=== PATIENT | female | born 1935 | race Two or more races ===

== ENCOUNTER 2018-06-07 08:20 | Emergency (ER) | payer MEDICARE, OTHER ==
[~2018-06-07] VITALS: Ht 162.6 cm; Wt 61.7 kg
[2018-06-07 09:05] VITALS: BP 132/85
[2018-06-07] MEDS ORDERED: methylPREDNISolone SOD SUCC 125 MG/2 ML VL IM ONE (09:15)
[2018-06-07] MEDS ORDERED: KETOROLAC TROMETH 60MG/2ML VIAL IM ONE (09:15)
== END 2018-06-07 10:01 | disposition home or self-care (01) ==
LOC: ER 08:20
DX: M11.242 Other chondrocalcinosis, left hand (principal); M10.9 Gout, unspecified; M19.90 Unspecified osteoarthritis, unspecified site; F17.210 Nicotine dependence, cigarettes, uncomplicated; Z88.0 Allergy status to penicillin
CPT/HCPCS: 73130; 96372; 99283; J1885; J2930

== ENCOUNTER 2018-06-19 10:29 | Emergency (ER) | payer MEDICARE, OTHER ==
[~2018-06-19] VITALS: Ht 165.1 cm; Wt 61.7 kg
[2018-06-19 11:16] VITALS: BP 106/44
[2018-06-19] MEDS ORDERED: KETOROLAC TROMETH 30 MG/ML 1ML VIAL IM ONE (12:15)
== END 2018-06-19 13:20 | disposition home or self-care (01) ==
LOC: ER 10:29
DX: M54.6 Pain in thoracic spine (principal); M85.80 Other specified disorders of bone density and structure, unspecified site; F17.210 Nicotine dependence, cigarettes, uncomplicated; Z88.0 Allergy status to penicillin
CPT/HCPCS: 72070; 96372; 99283; J1885

== ENCOUNTER 2018-09-03 12:33 | Inpatient (IN) | payer MEDICARE, OTHER ==
[~2018-09-03] VITALS: Ht 165.1 cm; Wt 58.1 kg
[~2018-09-03 12:33] MED LIST: ALBU2TAB4 PO; APIX5TAB PO; ASCO500T11 PO; CHOL20007 PO; DILT60TA27 PO; FURO20TA3 PO; GABA100C9 PO; IPRIH IN; PRE5T PO
[2018-09-03 13:21] LABS: Basophils # (auto) 0 uL; Basophils % (auto) 0.5 % (0.0-2.0); Eosinophils # (auto) 0 uL; Eosinophils % (auto) 0.1 % (0.0-7.0); Hematocrit 44.8 % (36.0-46.0); Lymphocytes # (auto) 0.7 uL; Lymphocytes % (auto) 9.4 % (10.0-50.0); Mean Corpuscular Hgb Conc. 33.5 g/dL (32.0-36.0); Mean Corpuscular Volume 101.3 fL (80.0-100.0); Monocytes # (auto) 1.2 uL; Monocytes % (auto) 15.7 % (0.0-12.0); Neutrophils # (auto) 5.8 uL; Neutrophils % (auto) 74.3 % (37.0-80.0); Nucleated Red Blood Cells % 0.1 %; Platelet Count (auto) 206 10^3/uL (140-450); Red Blood Cells 4.42 10^6/uL (4.0-5.20); Red Cell Distribution Width 13.2 % (11.8-14.3); White Blood Cell 7.8 10^3/uL (4.4-10.8)
[2018-09-03 13:34] LABS: Albumin 3.7 g/dL (3.4-5.0); Anion Gap 11 (5-15); Calcium 8.8 mg/dL (8.5-10.1); Carbon Dioxide 24 mmol/L (21-32); Chloride 102 mmol/L (98-107); Glucose 163 mg/dL (74-106); Magnesium 2.1 mg/dL (1.6-2.6); Potassium 3.5 mmol/L (3.5-5.1); Sodium 137 mmol/L (136-145)
[2018-09-03 13:36] LABS: Alanine Aminotransferase 16 U/L (13-56); Aspartate Aminotransferase 13 U/L (15-37); GFR African American 89 mL/min; GFR Non-African American 74 mL/min
[2018-09-03 13:41] LABS: Alkaline Phosphatase 70 U/L (45-117); Bilirubin, Total 1.8 mg/dL (0.2-1.0); Total Protein 7.6 g/dL (6.4-8.2)
[2018-09-03 14:44] LABS: BUN/Creatinine Ratio 17.7; Blood Urea Nitrogen 14 mg/dL (7-18)
[2018-09-03] MEDS ORDERED: HYDROcodone-ACET 10/325MG TAB PO ONE (15:45)
[2018-09-03] MEDS ORDERED: KETOROLAC TROMETH 30 MG/ML 1ML VIAL IV ONE (17:15)
[2018-09-03] MEDS ORDERED: LIDOCAINE 2% (LOCAL ANESTH.) PF 5ml SDV IJ ONE (17:45)
[2018-09-03] MEDS ORDERED: MORPHINE SULF INJ 2 MG/ML SYRINGE 1ML IV PRN (18:15)
[2018-09-03] MEDS ORDERED: LACTULOSE 20Gm/30ML SOLN PO PRN (18:15)
[2018-09-03] MEDS ORDERED: KETOROLAC TROMETH 30 MG/ML 1ML VIAL IV PRN (18:15)
[2018-09-03] MEDS ORDERED: ACETAMINOPHEN 500 MG TAB PO PRN (18:15)
[2018-09-03] MEDS ORDERED: LEVOFLOXACIN 500MG 100 ML IV ONE (18:15)
[2018-09-03] MEDS ORDERED: ALBUTEROL SULF 2.5 MG/0.5ML(0.5%) NEB SOLN NEB PRN (18:15)
[2018-09-03] MEDS ORDERED: TEMAZEPAM 15 MG CAP PO PRN (18:15)
[2018-09-03] MEDS ORDERED: NITROGLYCERIN 0.4 MG SL TAB SL PRN (18:15)
[2018-09-03] MEDS ORDERED: PROMETHAZINE HCL 25 MG/ML 1ML IV PRN (18:15)
[2018-09-03] MEDS ORDERED: traMADol HCL 50 MG TAB PO PRN (18:15)
[2018-09-03] MEDS: SODIUM CHLORIDE 0.9% 1,000 ML IV SCH (18:30)
[2018-09-03] MEDS ORDERED: CHOL100040 PO (18:58)
[2018-09-03] MEDS ORDERED: ASCO500T11 PO (18:58)
[2018-09-03 19:47] VITALS: BP 102/64
[2018-09-03 20:33] LABS: INR 1.13 (0.9-1.15); Prothrombin Time 12.1 sec (9.06-12.60)
--- NOTE | 2018-09-03 22:10 | NUR ---
Respiratory note: PT SEEN FOR PRN MED NEB TX AT 2210. TX NOT INDICATED AT THIS TIME. PT DISPLAYING NO SIGNS OF DISTRESS. PT STATED SHE IS BREATHING WELL. PT EDUCATED ON HER BREATH TREATMENT ORDERS AND WHEN TO CALL IF SHE FELT LIKE SHE NEEDED ONE. BREATH SOUNDS WERE DIMINISHED BILATERALLY. HR 78 RR 18 POX 94% ON ROOM AIR.
[2018-09-03] MEDS: COLCHICINE 0.6 MG CAP PO SCH (22:18)
[2018-09-03] MEDS: CLINDAMYCIN 600MG IV 50 ML IV SCH (22:18)
[2018-09-03] MEDS: APIXABAN 2.5 MG TAB PO SCH (22:18)
[2018-09-03 22:19] VITALS: BP 107/66
[2018-09-03 22:55] VITALS: BP 107/66
--- NOTE | 2018-09-03 23:33 | NUR ---
Telemetry admit from [facility] admitted to Telemetry unit after SBAR received. Patient oriented to ANH CARDOSO, RN primary RN, unit, room, bed, and unit policies regarding patient care and visiting hours. Patient now on continuous telemetry monitoring, tele box # 2 and telemetry reading on arrival to unit is Afib at 80BPM. Patient weighed by bed scale and encouraged to call if they need something. All questions and concerns addressed, patient verbalized understanding. Note: PATIENT IS ALERT AND ORIENTED X4,NO DISTRESS NOTED,SATURATING AT 95% ON ROOM AIR. COMPLAINS OF SLIGHT PAIN ON RIGHT ELBOW, SLIGT REDNESS AND SWELLING NOTED. AMBULATED TO BATHROOM WITH STANDBY ASSIST. IV TO LEFT HAND 22 PREET, RUNNING NS AT 100 MLS/HR. BED AT ITS LOWEST POSITION, BED ALARM TURNED ON AND CALL LIGHT WITH IN REACH.
[2018-09-04 01:43] VITALS: BP 107/66
--- NOTE | 2018-09-04 04:24 | NUR ---
URINE SPECIMEN COLLECTED AND SENT TO LAB.
[2018-09-04 05:00] VITALS: BP 118/70
--- NOTE | 2018-09-04 05:07 | NUR ---
ROUNDS ASSISTED PATIENT TO BATHROOM. URINE SPECIMEN COLLECTED AND SENT TO LAB. PATIENT IS BACK AND RESTING IN BED. NO DISTRESS NOTED WITH EVEN AND UNLABORED RESPIRATIONS AND SATURATING AT 97% ON ROOM AIR.
[2018-09-04] MEDS: CLINDAMYCIN 600MG IV 50 ML IV SCH ×2 (05:37→14:00)
[2018-09-04] MEDS: SODIUM CHLORIDE 0.9% 1,000 ML IV SCH ×2 (05:38→14:11)
[2018-09-04 05:44] LABS: Urine Bacteria MOD /hpf (None Seen); Urine Blood 1+ /uL (Negative); Urine Hyaline Cast FEW /lpf (0 - 2); Urine Specific Gravity 1.013 (1.001-1.035); Urine WBC 11 /hpf (0 - 5)
--- NOTE | 2018-09-04 07:20 | NUR ---
Open Shift Note Received report on patient, awake and sitting up in bed. Patient shows no signs of distress at this time. Patient states no longer having pain in elbow, but verbalizes anxiety as to why they are being kept in the hospital. Educated patient about POC and interventions that are in place. Patient verbalized understanding. Bed in lowest locked position, side rails up x2, and call light within reach. Will continue to monitor.
[2018-09-04 08:50] VITALS: BP 97/64
[2018-09-04] MEDS ORDERED: ASPirin 81 mg TAB PO SCH ×2 (10:00→16:00)
[2018-09-04] MEDS ORDERED: DILTIAZEM HCL 120MG ER CAP PO SCH (10:00)
[2018-09-04] MEDS ORDERED: LEVOFLOXACIN 500MG 100 ML IV SCH (10:00)
[2018-09-04] MEDS ORDERED: GABAPENTIN 100 MG CAP PO SCH (10:00)
[2018-09-04] MEDS: APIXABAN 2.5 MG TAB PO SCH (10:07)
[2018-09-04] MEDS: COLCHICINE 0.6 MG CAP PO SCH (10:07)
--- NOTE | 2018-09-04 11:15 | NUR ---
Dr Souza Cleared Dr Souza stated patient is cleared from his perspective, no further interventions or follow up needed since patient will see primary care for follow up.
--- NOTE | 2018-09-04 12:00 | NUR ---
Respiratory note: ASSESSED PATIENT FOR PRN BREATHING TX. PATIENT IS AWAKE AND ALERT, NO RESPIRATORY DISTRESS NOTED AT THIS TIME. PATIENT IS AWARE TO HAVE RT PAGED IF BREATHING TX IS NEEDED. PATIENT RR 18, HR 71, SPO2 94% ON ROOM AIR. WILL NOTIFY RN.
[2018-09-04 13:13] VITALS: BP 122/66
--- NOTE | 2018-09-04 13:30 | NUR ---
Patient Verbalizes Wanting To Leave Patient states they "are fed up" with the hospital and waiting for the doctor. Patient states she does not understand why she is still here if doctor says she can go. Informed her that the doctor who saw her this morning was the ortho doctor who cleared her. Educated patient that discharge order is needed from hospitalist who will come see her today. Patient states "this is ridiculous that I'm being held against my will". Educated patient of her rights and that she can signs herself out AMA at anytime. Patient verbalized understanding, but states they do not want to leave AMA because of insurance.
--- NOTE | 2018-09-04 14:15 | NUR ---
Patient Refusing IV Fluids and Antibiotic Patient states they no longer want to be hooked up to the IV pump. Educated patient the importance of receiving IV fluids and medication, patient states " I don't care I don't need it. I'm going home".
[2018-09-04 15:29] VITALS: BP 122/66
--- NOTE | 2018-09-04 16:23 | NUR ---
Patient Refused Aspirin Patient refused aspirin, states primary doctor told her not to take Aspirin when also taking Eliquis. Educated patient about both medications as well as their right to refuse. Patient verbalized understanding.
--- NOTE | 2018-09-04 16:27 | NUR ---
Discharged Discharge instructions given as ordered. Encourage to follow up with PMD as instructed. All questions and concerns addressed. Patient verbalized understanding. Prescription given, instructed patient to take it to preferred pharmacy. IV removed with catheter intact, pressure dressing applied. Telemetry unit returned to [facility]. Patient waiting for family member to come to room for a ride home. Instructed patient to press call light once family arrives so they can be escorted downstairs via wheelchair. Patient verbalized understanding.
--- NOTE | 2018-09-04 17:50 | NUR ---
Patient Taken Down to Car Patient taken down to car via wheelchair. No distress noted.
== END 2018-09-04 17:50 | disposition home or self-care (01) | DRG 603 ==
LOC: ER 12:33 → TELE 18:16 → TELE-WESTW 20:18
PROVIDERS: ADMIT Internal Medicine; ATTEND Internal Medicine
PROC: 0R9L3ZZ Drainage of Right Elbow Joint, Percutaneous Approach (ICD-10-PCS; principal; 2018-09-03)
DX: L03.113 Cellulitis of right upper limb (principal); I48.92 Unspecified atrial flutter; D68.69 Other thrombophilia; M19.90 Unspecified osteoarthritis, unspecified site; M10.9 Gout, unspecified; I48.91 Unspecified atrial fibrillation; J44.9 Chronic obstructive pulmonary disease, unspecified; I10 Essential (primary) hypertension; G62.9 Polyneuropathy, unspecified; M19.021 Primary osteoarthritis, right elbow; Z83.3 Family history of diabetes mellitus; Z83.71 Family history of colonic polyps; Z86.73 Personal history of transient ischemic attack (TIA), and cerebral infarction without residual deficits; Z87.891 Personal history of nicotine dependence; Z90.710 Acquired absence of both cervix and uterus; Z88.0 Allergy status to penicillin; Z82.61 Family history of arthritis
CPT/HCPCS: 36415; 70450; 73080; 73090; 73200; 80053; 81001; 83735; 83880; 84484; 84550; 85025; 85610; 85652; 86141; 86431; 87040; 87205; 89060; 93005; 96365; 96375; G0378; J1885; J1956; J2001; J3490

== ENCOUNTER 2020-05-17 16:15 | Inpatient (IN) | payer MEDICARE, OTHER ==
[~2020-05-17] VITALS: Ht 167.6 cm; Wt 69.0 kg
[~2020-05-17 16:15] MED LIST changes: +CHOL100040 PO; -CHOL20007 PO; +DILT60TA PO; -DILT60TA27 PO; -FURO20TA3 PO; -PRE5T PO
[2020-05-17 17:01] LABS: Basophils # (auto) 0 10 ^3/uL (0-0.2); Eosinophils # (auto) 0.1 10 ^3/uL (0-0.8); Hemoglobin 14.8 g/dL (12.2-16.2); Lymphocytes # (auto) 0.9 10 ^3/uL (0.4-5.4); Monocytes # (auto) 0.8 10 ^3/uL (0-1.3); Neutrophils # (auto) 3.8 10 ^3/uL (1.6-8.6); White Blood Cell 5.6 10^3/uL (4.4-10.8)
[2020-05-17 17:03] LABS: Basophils % (auto) 0.5 % (0.0-2.0); Eosinophils % (auto) 1.5 % (0.0-7.0); Hematocrit 43.2 % (36.0-46.0); Lymphocytes % (auto) 15.7 % (10.0-50.0); Mean Corpuscular Hemoglobin 36.5 pg (28.0-32.0); Mean Corpuscular Hgb Conc. 34.2 g/dL (32.0-36.0); Mean Corpuscular Volume 106.8 fL (80.0-100.0); Monocytes % (auto) 14.8 % (0.0-12.0); Neutrophils % (auto) 67.5 % (37.0-80.0); Nucleated Red Blood Cells % 0.2 %; Platelet Count (auto) 161 10^3/uL (140-450); Red Blood Cells 4.05 10^6/uL (4.0-5.20)
[2020-05-17 17:08] LABS: Urine Amorphous Crystal FEW /hpf (None Seen); Urine Bacteria FEW /hpf (None Seen); Urine Blood 1+ /uL (Negative); Urine Hyaline Cast FEW /lpf (0 - 2); Urine Mucus FEW (None Seen); Urine Specific Gravity 1.007 (1.001-1.035); Urine WBC 25 /hpf (0 - 5)
[2020-05-17 17:17] LABS: INR 1.26 (0.9-1.15); Partial Thromboplastin Time 33.3 sec (23.0-31.2)
[2020-05-17 17:22] LABS: Albumin 2.7 g/dL (3.4-5.0); Anion Gap 6 (5-15); Blood Urea Nitrogen 7 mg/dL (7-18); Calcium 6.4 mg/dL (8.5-10.1); Carbon Dioxide 25 mmol/L (21-32); Chloride 108 mmol/L (98-107); Glucose 72 mg/dL (74-106); Sodium 139 mmol/L (136-145)
[2020-05-17 17:25] LABS: Amphetamine Screen, Urine NEGATIVE (NEGATIVE); Barbiturate Scree,Urine NEGATIVE (NEGATIVE); Benzodiazephine Screen, Urine NEGATIVE (NEGATIVE); Cannabinoid Screen, Urine NEGATIVE (NEGATIVE); Cocaine Screen, Urine NEGATIVE (NEGATIVE); Opiate Scree,Urine NEGATIVE (NEGATIVE); Phencyclidine Screen, Urine NEGATIVE (NEGATIVE)
[2020-05-17 17:27] LABS: Alanine Aminotransferase 12 U/L (13-56); Alkaline Phosphatase 50 U/L (45-117); Aspartate Aminotransferase 18 U/L (15-37); BUN/Creatinine Ratio 18.9; Bilirubin, Total 0.8 mg/dL (0.2-1.0); GFR African American 213 mL/min; GFR Non-African American 176 mL/min; Total Protein 5.2 g/dL (6.4-8.2)
[2020-05-17 18:09] LABS: Potassium 2.7 mmol/L (3.5-5.1)
[2020-05-17] MEDS ORDERED: POTASSIUM EFFERVESENT TAB 25 MEQ PO ONE (18:30)
[2020-05-17] MEDS ORDERED: POTASSIUM EFFERVESENT TAB 25 MEQ GT ONE (18:30)
[2020-05-17] MEDS ORDERED: LIDOCAINE 1% HCL (LOCAL ANESTH.) INJ 20ML MDV ONE (20:57)
[2020-05-17] MEDS ORDERED: LIDOCAINE W/ EPINEPHRINE 1 % INJ 30ML ONE (21:00)
[2020-05-17] MEDS ORDERED: ONDANSETRON HCL 4 MG/2 ML VIAL IV PRN (21:45)
[2020-05-17] MEDS ORDERED: MORPHINE SULF INJ 2 MG/ML SYRINGE 1ML IV PRN (21:45)
[2020-05-17] MEDS ORDERED: NITROGLYCERIN 0.4 MG SL TAB SL PRN (21:45)
[2020-05-17] MEDS ORDERED: DOCUSATE SOD 100 MG CAP PO PRN (21:45)
[2020-05-17] MEDS ORDERED: ACETAMINOPHEN 325 MG TAB PO PRN (21:45)
[2020-05-17] MEDS ORDERED: MORPHINE SULFATE 4 MG/ML SYR/VIAL IV PRN (21:45)
[2020-05-17] MEDS ORDERED: IPRATROPIUM BROM 0.5 MG/2.5ML INH SOL NEB PRN (22:00)
[2020-05-17] MEDS ORDERED: ALBUMIN 5% 50 ML IV ONE (22:00)
[2020-05-17] MEDS: FAMOTIDINE 20 MG TAB PO SCH (22:43)
[2020-05-17] MEDS: ASCORBIC ACID 500 MG TAB PO SCH (22:44)
[2020-05-17] MEDS: D5W/SOD CHL 0.45% 1,000 ML IV SCH (22:56)
[2020-05-17] MEDS: ALBUTEROL SULF HFA 90MCG INH 200DOSE IN SCH (23:24)
[2020-05-18 03:00] VITALS: BP 129/54
[2020-05-18] MEDS: HYDROcodone-ACET 5/325MG TAB PO PRN ×3 (03:55→19:17)
[2020-05-18 05:00] VITALS: BP 117/59
[2020-05-18 06:00] VITALS: BP 129/54
[2020-05-18] MEDS: ALBUTEROL SULF HFA 90MCG INH 200DOSE IN SCH (06:00)
[2020-05-18 07:53] VITALS: BP 115/65
[2020-05-18 09:44] LABS: Basophils # (auto) 0 10 ^3/uL (0-0.2); Eosinophils # (auto) 0.1 10 ^3/uL (0-0.8); Hemoglobin 14.7 g/dL (12.2-16.2); Lymphocytes # (auto) 0.8 10 ^3/uL (0.4-5.4); Monocytes # (auto) 0.9 10 ^3/uL (0-1.3); Nucleated Red Blood Cells % 0.1 %; Platelet Count (auto) 160 10^3/uL (140-450)
[2020-05-18 09:47] LABS: Basophils % (auto) 0.4 % (0.0-2.0); Eosinophils % (auto) 0.8 % (0.0-7.0); Hematocrit 42.6 % (36.0-46.0); Lymphocytes % (auto) 12.5 % (10.0-50.0); Mean Corpuscular Hemoglobin 37.1 pg (28.0-32.0); Mean Corpuscular Hgb Conc. 34.6 g/dL (32.0-36.0); Mean Corpuscular Volume 107.2 fL (80.0-100.0); Neutrophils # (auto) 4.4 10 ^3/uL (1.6-8.6); Neutrophils % (auto) 71.3 % (37.0-80.0); Red Blood Cells 3.97 10^6/uL (4.0-5.20); Red Cell Distribution Width 12.8 % (11.8-14.3); White Blood Cell 6.2 10^3/uL (4.4-10.8)
[2020-05-18 10:05] LABS: Potassium 3.7 mmol/L (3.5-5.1)
[2020-05-18 10:06] LABS: INR 1.17 (0.9-1.15); Partial Thromboplastin Time 29.7 sec (23.0-31.2)
[2020-05-18 10:23] LABS: Albumin 3.2 g/dL (3.4-5.0); BUN/Creatinine Ratio 11.1; Bilirubin, Total 1.7 mg/dL (0.2-1.0); Calcium 8.1 mg/dL (8.5-10.1); Total Protein 6.3 g/dL (6.4-8.2)
[2020-05-18] MEDS: FAMOTIDINE 20 MG TAB PO SCH ×2 (10:31→22:00)
[2020-05-18] MEDS: ASCORBIC ACID 500 MG TAB PO SCH ×2 (10:31→22:17)
[2020-05-18] MEDS: MULTIPLE VITAMIN TAB PO SCH (10:32)
[2020-05-18] MEDS: ZINC SULFATE 220mg CAP or TAB PO SCH (10:32)
[2020-05-18] MEDS ORDERED: CIPROFLOXACIN HYDROCHLORIDE 250 MG TAB PO ONE (12:30)
[2020-05-18 16:00] VITALS: BP 132/66
[2020-05-18] MEDS: D5W/SOD CHL 0.45% 1,000 ML IV SCH ×2 (18:50→22:00)
[2020-05-18] MEDS: Ensure HIGH Protein Chocolate 8oz Bottle PO SCH (18:50)
[2020-05-18] MEDS ORDERED: METOPROLOL TARTRATE 25 MG TAB PO ONE (19:30)
[2020-05-18] MEDS ORDERED: LORazepam 2MG/ML-1ML VIAL IV PRN ×2 (21:30)
[2020-05-18 21:41] VITALS: BP 117/66
[2020-05-18] MEDS: METOPROLOL TARTRATE 25 MG TAB PO SCH (22:00)
[2020-05-18] MEDS: CIPROFLOXACIN HYDROCHLORIDE 250 MG TAB PO SCH (22:20)
[2020-05-19] VITALS: BP 126/87
[2020-05-19 05:00] VITALS: BP 115/74
[2020-05-19 06:44] LABS: Basophils # (auto) 0 10 ^3/uL (0-0.2); Eosinophils # (auto) 0.1 10 ^3/uL (0-0.8); Monocytes # (auto) 0.9 10 ^3/uL (0-1.3)
[2020-05-19 06:46] LABS: Lymphocytes % (auto) 11.3 % (10.0-50.0); Monocytes % (auto) 13.5 % (0.0-12.0); Neutrophils % (auto) 73.8 % (37.0-80.0); White Blood Cell 6.8 10^3/uL (4.4-10.8)
[2020-05-19 06:47] LABS: Basophils % (auto) 0.3 % (0.0-2.0); Eosinophils % (auto) 1.1 % (0.0-7.0); Hematocrit 42.6 % (36.0-46.0); Hemoglobin 14.9 g/dL (12.2-16.2); Lymphocytes # (auto) 0.8 10 ^3/uL (0.4-5.4); Mean Corpuscular Hemoglobin 37.1 pg (28.0-32.0); Mean Corpuscular Hgb Conc. 34.9 g/dL (32.0-36.0); Mean Corpuscular Volume 106.3 fL (80.0-100.0); Platelet Count (auto) 153 10^3/uL (140-450); Red Blood Cells 4.01 10^6/uL (4.0-5.20); Red Cell Distribution Width 12.5 % (11.8-14.3)
[2020-05-19 07:07] LABS: Albumin 3.1 g/dL (3.4-5.0); BUN/Creatinine Ratio 22.9; Bilirubin, Total 1.5 mg/dL (0.2-1.0); Calcium 8.5 mg/dL (8.5-10.1); Total Protein 6.1 g/dL (6.4-8.2)
[2020-05-19 08:00] VITALS: BP 118/77
[2020-05-19] MEDS: ZINC SULFATE 220mg CAP or TAB PO SCH (09:44)
[2020-05-19] MEDS: MULTIPLE VITAMIN TAB PO SCH (09:44)
[2020-05-19] MEDS: ASCORBIC ACID 500 MG TAB PO SCH ×2 (09:44→22:00)
[2020-05-19] MEDS: chlordiazePOXIDE HCL 25 MG CAP PO PRN ×2 (09:45→20:00)
[2020-05-19] MEDS: METOPROLOL TARTRATE 25 MG TAB PO SCH ×2 (09:46→22:00)
[2020-05-19] MEDS: FAMOTIDINE 20 MG TAB PO SCH ×2 (09:46→22:00)
[2020-05-19] MEDS: THIAMINE 100mg/ml INJ (200mg/2ml VIAL) IV SCH (09:47)
[2020-05-19] MEDS: Ensure HIGH Protein Chocolate 8oz Bottle PO SCH ×3 (09:47→18:09)
[2020-05-19] MEDS: CIPROFLOXACIN HYDROCHLORIDE 250 MG TAB PO SCH ×2 (10:48→22:00)
[2020-05-19] MEDS ORDERED: GADOTERATE MEG 7.5 MMOL/15ml INJ (0.5MMOL/ml) IV ONE (13:12)
[2020-05-19 14:22] LABS: Folate (Folic Acid) 19.9 ng/mL (5.38-24)
[2020-05-19 16:00] VITALS: BP 134/88
[2020-05-19] MEDS ORDERED: CHOL20007 PO (17:14)
[2020-05-19] MEDS ORDERED: ASCO-22 PO (17:14)
[2020-05-19] MEDS ORDERED: APIX5TAB PO (17:14)
[2020-05-19] MEDS ORDERED: DILT60TA PO (17:14)
[2020-05-19] MEDS ORDERED: MORPHINE SULF INJ 2 MG/ML SYRINGE 1ML IV PRN (21:30)
[2020-05-19 22:00] VITALS: BP 117/70
[2020-05-19] MEDS: HYDROcodone-ACET 5/325MG TAB PO PRN (22:00)
[2020-05-19] MEDS: D5W/SOD CHL 0.45% 1,000 ML IV SCH (22:07)
[2020-05-20 00:11] VITALS: BP 117/70
[2020-05-20] MEDS: chlordiazePOXIDE HCL 25 MG CAP PO PRN (04:00)
[2020-05-20 06:10] LABS: Basophils # (auto) 0 10 ^3/uL (0-0.2); Basophils % (auto) 0.4 % (0.0-2.0); Eosinophils # (auto) 0.2 10 ^3/uL (0-0.8); Monocytes # (auto) 1.1 10 ^3/uL (0-1.3); White Blood Cell 6.1 10^3/uL (4.4-10.8)
[2020-05-20 06:14] LABS: Eosinophils % (auto) 3.4 % (0.0-7.0); Hematocrit 40.5 % (36.0-46.0); Hemoglobin 14.2 g/dL (12.2-16.2); Lymphocytes # (auto) 1.1 10 ^3/uL (0.4-5.4); Lymphocytes % (auto) 17.5 % (10.0-50.0); Mean Corpuscular Hemoglobin 37.2 pg (28.0-32.0); Mean Corpuscular Hgb Conc. 35.1 g/dL (32.0-36.0); Mean Corpuscular Volume 106.1 fL (80.0-100.0); Monocytes % (auto) 17.8 % (0.0-12.0); Neutrophils # (auto) 3.7 10 ^3/uL (1.6-8.6); Neutrophils % (auto) 60.9 % (37.0-80.0); Platelet Count (auto) 160 10^3/uL (140-450); Red Blood Cells 3.82 10^6/uL (4.0-5.20); Red Cell Distribution Width 12.6 % (11.8-14.3)
[2020-05-20 06:34] LABS: Potassium 3.5 mmol/L (3.5-5.1)
[2020-05-20 06:48] LABS: BUN/Creatinine Ratio 31.1; Calcium 8.3 mg/dL (8.5-10.1)
[2020-05-20 08:00] VITALS: BP 109/65
[2020-05-20] MEDS: Ensure HIGH Protein Chocolate 8oz Bottle PO SCH ×3 (08:30→18:12)
[2020-05-20] MEDS: MULTIPLE VITAMIN TAB PO SCH (09:22)
[2020-05-20] MEDS: ASCORBIC ACID 500 MG TAB PO SCH ×2 (09:23→22:00)
[2020-05-20] MEDS: ZINC SULFATE 220mg CAP or TAB PO SCH (09:23)
[2020-05-20] MEDS: FAMOTIDINE 20 MG TAB PO SCH ×2 (09:23→22:00)
[2020-05-20] MEDS: THIAMINE 100mg/ml INJ (200mg/2ml VIAL) IV SCH (09:26)
[2020-05-20] MEDS: METOPROLOL TARTRATE 25 MG TAB PO SCH ×2 (09:27→22:00)
[2020-05-20] MEDS ORDERED: DexAMETHasone 4 MG TAB PO SCH (10:00)
[2020-05-20] MEDS: CIPROFLOXACIN HYDROCHLORIDE 250 MG TAB PO SCH ×2 (11:45→22:00)
[2020-05-20] MEDS ORDERED: IOHEXOL 300 MG/ML 100ML BOTTLE IJ ONE (15:18)
[2020-05-20 16:00] VITALS: BP 108/80
[2020-05-20] MEDS: HYDROcodone-ACET 5/325MG TAB PO PRN (20:00)
[2020-05-20] MEDS: DexAMETHasone SOD PHOS 4 MG/1ML SDV INJ IV SCH (22:00)
[2020-05-21] VITALS: BP 121/73
[2020-05-21 02:00] VITALS: BP 105/76
[2020-05-21] MEDS: D5W/SOD CHL 0.45% 1,000 ML IV SCH (06:11)
[2020-05-21] MEDS: DexAMETHasone SOD PHOS 4 MG/1ML SDV INJ IV SCH ×3 (06:11→22:09)
[2020-05-21 08:00] VITALS: BP 102/64
[2020-05-21] MEDS: Ensure HIGH Protein Chocolate 8oz Bottle PO SCH ×3 (08:00→18:00)
[2020-05-21] MEDS: THIAMINE 100mg/ml INJ (200mg/2ml VIAL) IV SCH (09:41)
[2020-05-21] MEDS: CIPROFLOXACIN HYDROCHLORIDE 250 MG TAB PO SCH ×2 (09:42→22:00)
[2020-05-21] MEDS: ASCORBIC ACID 500 MG TAB PO SCH ×2 (09:42→22:11)
[2020-05-21] MEDS: ZINC SULFATE 220mg CAP or TAB PO SCH (09:42)
[2020-05-21] MEDS: FAMOTIDINE 20 MG TAB PO SCH ×2 (09:42→22:11)
[2020-05-21] MEDS: MULTIPLE VITAMIN TAB PO SCH (09:42)
[2020-05-21] MEDS: METOPROLOL TARTRATE 25 MG TAB PO SCH ×2 (09:43→22:00)
[2020-05-21 12:00] VITALS: BP 90/58
[2020-05-21 16:00] VITALS: BP 95/71
[2020-05-21 22:00] VITALS: BP 137/87
[2020-05-22] VITALS: BP 137/87
[2020-05-22] MEDS: D5W/SOD CHL 0.45% 1,000 ML IV SCH (02:00)
[2020-05-22 05:00] VITALS: BP 106/72
[2020-05-22] MEDS: DexAMETHasone SOD PHOS 4 MG/1ML SDV INJ IV SCH ×2 (06:00→14:00)
[2020-05-22 08:00] VITALS: BP 114/48
[2020-05-22] MEDS: Ensure HIGH Protein Chocolate 8oz Bottle PO SCH ×2 (08:15→12:00)
[2020-05-22] MEDS: ZINC SULFATE 220mg CAP or TAB PO SCH (10:05)
[2020-05-22] MEDS: THIAMINE 100mg/ml INJ (200mg/2ml VIAL) IV SCH (10:05)
[2020-05-22] MEDS: ASCORBIC ACID 500 MG TAB PO SCH (10:06)
[2020-05-22] MEDS: CIPROFLOXACIN HYDROCHLORIDE 250 MG TAB PO SCH (10:06)
[2020-05-22] MEDS: MULTIPLE VITAMIN TAB PO SCH (10:06)
[2020-05-22] MEDS: METOPROLOL TARTRATE 25 MG TAB PO SCH (10:07)
[2020-05-22] MEDS: FAMOTIDINE 20 MG TAB PO SCH (10:07)
== END 2020-05-22 15:45 | disposition hospice, home (50) | DRG 180 ==
LOC: EDBD 16:15 → ER 16:19 → TELE 21:42 → TELE-EAST 05-18 02:20 → TELE-CENTR 05-18 21:30
PROVIDERS: ADMIT Nurse Practitioner Family; ATTEND Family Medicine
DX: C34.90 Malignant neoplasm of unspecified part of unspecified bronchus or lung (principal); G93.6 Cerebral edema; C79.31 Secondary malignant neoplasm of brain; D68.69 Other thrombophilia; E87.1 Hypo-osmolality and hyponatremia; E44.0 Moderate protein-calorie malnutrition; F10.239 Alcohol dependence with withdrawal, unspecified; N39.0 Urinary tract infection, site not specified; M48.54XA Collapsed vertebra, not elsewhere classified, thoracic region, initial encounter for fracture; I48.92 Unspecified atrial flutter; Z20.822 Contact with and (suspected) exposure to COVID-19; S01.01XA Laceration without foreign body of scalp, initial encounter; E88.09 Other disorders of plasma-protein metabolism, not elsewhere classified; E87.6 Hypokalemia; W01.198A Fall on same level from slipping, tripping and stumbling with subsequent striking against other object, initial encounter; Y90.4 Blood alcohol level of 80-99 mg/100 ml; W22.09XA Striking against other stationary object, initial encounter; Y93.89 Activity, other specified; Y92.9 Unspecified place or not applicable; Y99.9 Unspecified external cause status; D75.89 Other specified diseases of blood and blood-forming organs; I10 Essential (primary) hypertension; I48.91 Unspecified atrial fibrillation; Z88.0 Allergy status to penicillin; F17.200 Nicotine dependence, unspecified, uncomplicated; J43.9 Emphysema, unspecified; M19.90 Unspecified osteoarthritis, unspecified site; R56.9 Unspecified convulsions; Z79.01 Long term (current) use of anticoagulants; Z83.3 Family history of diabetes mellitus; Z83.71 Family history of colonic polyps; Z90.710 Acquired absence of both cervix and uterus
CPT/HCPCS: 36415; 70450; 70553; 71260; 74177; 80048; 80053; 80307; 80320; 81001; 82607; 82746; 84443; 84484; 85025; 85610; 85730; 87086; 87426; 93005; 97110; 97116; 97530; G0378; J1100; J2001